=== PATIENT | female | born 1960 | race Two or more races ===

== ENCOUNTER 2017-07-29 09:30 | Inpatient (IN) | payer OTHER ==
--- NOTE | 2017-07-28 08:38 | HP ---
Admitting History and Physical - Primary Care Physician PCP: David Delarosa - Admission Chief Complaint: Left breast cancer History of Present Illness: 57 year old postmenapausal female of [place] descent with strong family history of breast cancer who had a palpable mass in her left breast upper outer quadrant 06/2017. Mammogram and US showed highly suspicious mass with pleomorphic calcifications left upper puter aspect. US showed the mass to be 3.5 cm. US core bx 06/2017 showed infiltrating ductal carcinoma. Breast MRI showed left breast cancer 5x3 xcm and second enhancing focus and enlarged node probably benign, left breast negative. History Source: Patient Limitations to Obtaining History: No Limitations - Past Surgical History Past Surgical History: Yes: (2) Additional Past Surgical History: benign stereotactic core bx 2003 - Smoking History Smoking history: Never smoked Have you smoked in the past 12 months: No - Alcohol/Substance Use Hx Alcohol Use: Yes (socially) Home Medications - Allergies Allergies/Adverse Reactions: Allergies Allergy/AdvReac Type Severity Reaction Status Date / Time No Known Allergies Allergy Verified 07/28/17 08:39 Family Disease History - Family Disease History Family Disease History: CA: Mother (breast ca 52) Physical Examination Constitutional: Yes: Well Nourished, No Distress Breast(s): Yes: Other (mildly ptotic breasts C cup 3.5-5 cm thickening no left breast upper outer quadrant, right breast negative no adenopathy) Problem List - Problems (1) Breast cancer, left breast Code(s): C50.912 - MALIGNANT NEOPLASM OF UNSPECIFIED SITE OF LEFT FEMALE BREAST Qualifiers: Breast location: upper outer quadrant of breast Patient sex: female Assessment/Plan Left total mastectomy sentenel node biopsy ,lymphoscintogram , possible axillary node dissection reconstruction
[2017-07-29] MEDS ORDERED: ISOSULFAN BLUE 10 MG/ML VIAL SQ ONE (10:22)
[2017-07-29] MEDS ORDERED: ROCURONIUM BROMIDE 50 MG/5 ML VIAL ONE (10:35)
[2017-07-29] MEDS ORDERED: PROPOFOL 20 ML ONE ×8 (10:35→14:46)
[2017-07-29] MEDS ORDERED: MIDAZOLAM HCL 2 MG/2 ML SINGLE DOSE VIAL ONE ×2 (10:36→11:26)
[2017-07-29] MEDS ORDERED: DEXAMETHASONE SOD PHOSPHATE 4 MG/1 ML VIAL ONE (10:37)
[2017-07-29] MEDS ORDERED: ONDANSETRON 4 MG/2 ML VIAL ONE ×2 (10:37→13:56)
[2017-07-29 11:01] VITALS: BMI 26.8
[2017-07-29] MEDS ORDERED: HALOPERIDOL LACTATE 5 MG/ML ONE (11:26)
[2017-07-29] MEDS ORDERED: DEXAMETHASONE SOD PHOSPHATE/PF 10 MG/ML SDV ONE (11:26)
[2017-07-29] MEDS ORDERED: SCOPOLAMINE HYDROBROMIDE 1 PATCH PATCH.TD72 ONE (11:26)
[2017-07-29] MEDS ORDERED: BUPIVACAINE HCL/PF (5 MG/ML) 30 ML VIAL IJ ONE (11:26)
[2017-07-29] MEDS ORDERED: ROPIVACAINE HCL 0.5% 30ML VIAL ONE (11:27)
[2017-07-29] MEDS ORDERED: SUCCINYLCHOLINE CHLORIDE 200 MG/10 ML VIAL ONE (12:08)
[2017-07-29] MEDS ORDERED: GLYCOPYRROLATE 0.2 MG/1 ML VIAL ONE (13:25)
[2017-07-29] MEDS ORDERED: NEOSTIGMINE METHYLSULFATE 0.5 MG/ML - 10 ML MDV ONE (13:25)
[2017-07-29] MEDS ORDERED: ZOLPIDEM TARTRATE 5 MG TABLET PO PRN (14:06)
[2017-07-29] MEDS ORDERED: ONDANSETRON 4 MG/2 ML VIAL IVPB PRN (14:06)
[2017-07-29] MEDS ORDERED: CEFAZOLIN 1 GM/D5W 50 ML IVPB SCH (15:00)
[2017-07-29] MEDS ORDERED: ONDANSETRON 4 MG/2 ML VIAL IVPUSH PRN (15:19)
[2017-07-29] MEDS ORDERED: LACTATED RINGERS SOLUTION 1,000 ML IV SCH (15:30)
[2017-07-29] MEDS: DEXTROSE 5%-0.45% SALINE 1,000 ML IV SCH (16:11)
[2017-07-29] MEDS ORDERED: oxyCODONE HCL 5 MG TABLET PO ONE (16:15)
[2017-07-29] MEDS ORDERED: oxyCODONE HCL 5 MG TABLET ONE (16:16)
[2017-07-29] MEDS: oxyCODONE HCL 5 MG TABLET PO PRN ×3 (17:46→23:25)
[2017-07-29] MEDS: CEFAZOLIN 1 GM/D5W 50 ML IVPB SCH ×2 (17:46→23:25)
--- NOTE | 2017-07-29 21:08 | OP ---
DATE OF OPERATION: 07/29/2017 PREOPERATIVE DIAGNOSIS: Left breast cancer, upper outer quadrant. POSTOPERATIVE DIAGNOSIS: Left breast cancer, upper outer quadrant. PROCEDURE: Left breast total mastectomy with left axillary sentinel lymph node biopsy with AirXpander reconstruction by Dr. Romano. ANESTHESIA: General anesthesia. PRIMARY SURGEON: Tracee Delarosa MD SOCIAL SERVICES COORDINATOR: STAN[place] Primary surgeon for the AirXpander reconstruction on the left side is Dr. Tracee Romano. There were no complications. Briefly, the patient is a 56-year-old, G4, P2, postmenopausal female, of descent. The patient felt a mass and pulling in the upper outer aspect of the left breast in June 2017 and underwent a mammography and ultrasound, showing a mass in the upper outer quadrant of the left breast measuring about 3.5 cm with significant surrounding calcifications. Ultrasound-guided core biopsy performed on July 01, 2017, showed a high-grade infiltrating ductal cancer at the 2 o'clock region, 7 cm from the nipple. This was ER/KS positive and HER-2/mauricio negative. The patient underwent an MRI, showing a 5 x 3 area of enhancement to the left breast with a separate area measuring 9 mm in the lower outer quadrant. There was no suspicious adenopathy. Given her breast size, it was felt that a mastectomy was needed. She was seen by the plastic surgeon preoperatively and floorworker lasting reconstruction was recommended. The patient was brought in for the surgery on July 29, 2017. She first underwent a lymphoscintigraphy at [facility] and was brought to the [facility] area. In the holding area, site verification was made and informed consent was obtained. She was marked preoperatively by the plastic surgeon. She was brought in to the operating room and laid on the OR table in a supine position. She did undergo a prepectoral block on the left side. Venodynes were placed on the lower extremities prior to induction. She received 1 g of Ancef prior to incision. Both breasts were sterilely prepped and draped in the usual fashion, with the left arm prepped in the field. Then 3 mL of Lymphazurin blue were injected intradermally around the periareolar region of the left breast, and massage was instituted. The procedure was started with the left axillary sentinel lymph node biopsy, and an incision was made just below the hair-bearing area of the left axilla and dissection was undertaken and blue lymphatics were easily seen coursing to 2 blue hot lymph nodes in the level 1 region of the left axilla. The 1st sentinel lymph node had a 10-second gamma count of 17,382, and the 2nd sentinel node had a 10-second gamma count of 2486, and both were blue and hot. This was sent for frozen section, came back negative. A separate slightly palpable node in the level 1 region of the left axilla was also excised and sent to Pathology for permanent section and labeled non-sentinel lymph node. Background counts after removal of these 3 nodes was 252. Hemostasis was achieved. At this point, a total mastectomy was performed. An elliptical incision was made around the nipple-areolar complex, removing the entire nipple-areolar complex. Skin flaps were raised superiorly to the level of the clavicle, medially to the level of the sternum, laterally to the level of the latissimus, and inferiorly below the level of the inframammary fold. The breast was taken down off the pectoralis major muscle using electrocautery from medial to lateral and completely removed intact. It was weighed to allow for appropriate cosmetic result, and oriented with a long lateral and short superior suture. Specimen radiograph showed removal of the clip in question. Hemostasis was achieved. A separate anterior margin was taken underneath the skin flap in the upper outer aspect of the left breast and sent separately in permanent section as anterior margin with a suture marking the biopsy cavity side. The wound was copiously irrigated with warm sterile saline. At this point, Dr. Romano became the primary surgeon, and he performed an floorworker lasting reconstruction in subpectoral location using an AirXpander. This will be dictated separate by Plastic Surgery. Two drains were placed around the floorworker lasting and both through separate stab incisions on the lateral skin flap. All wounds will be closed by Plastic Surgery. We did use a SPY skin perfusion device during the case and she had excellent skin perfusion of the flaps. The patient will be recovered after she is extubated, and then be admitted postoperatively for pain management and wound management. Her drains will be placed on LEONARDO self-bulb suction. All sponge and needle counts were correct at the end of the case. Estimated blood loss was about 60 mL and she was hemodynamically stable throughout. TRACEE DELAROSA M.D. CHON/[id number]
[2017-07-30] MEDS: oxyCODONE HCL 5 MG TABLET PO PRN ×5 (02:16→20:52)
[2017-07-30] MEDS: CEFAZOLIN 1 GM/D5W 50 ML IVPB SCH ×3 (06:45→17:34)
[2017-07-30] MEDS: ACETAMINOPHEN 325 MG TABLET (FP) PO PRN ×4 (07:26→21:28)
[2017-07-30] MEDS: HEPARIN NA (PORCINE) 5,000 UNITS/ML 1ML VIAL SQ SCH ×2 (07:26→20:37)
[2017-07-30 08:11] LABS: MCHC 32.6 g/dl (32.0-36.0); MEAN CELL VOLUME 85.7 fl (80-96); MEAN PLT VOLUME 8.2 fl (7.5-11.1); PLATELET COUNT 272 K/MM3 (134-434); RDW 12.3 % (11.6-15.6); WHITE BLOOD COUNT 11.9 K/mm3 (4.0-10.8)
--- NOTE | 2017-07-30 09:04 | PN ---
Progress Note, Physician Chief Complaint: S/P left mastectomy with reconstruction and snbx POD #1 History of Present Illness: Patient seen this am and is comfortable without any complaints. She has good pain control as well. - Current Medication List Current Medications: Active Medications Acetaminophen (Tylenol -) 650 mg PO Q4H PRN PRN Reason: FEVER Last Admin: 07/30/17 07:26 Dose: 650 mg Heparin Sodium (Porcine) (Heparin -) 5,000 unit SQ BID@0800,2000 [facility] Last Admin: 07/30/17 07:26 Dose: 5,000 unit Dextrose/Sodium Chloride (D5-1/2ns -) 1,000 mls @ 100 mls/hr IV ASDIR [facility] Last Admin: 07/29/17 16:11 Dose: Not Given Cefazolin Sodium (Ancef 1 Gm Premixed Ivpb -) 50 mls @ 100 mls/hr IVPB Q6H [facility] Last Admin: 07/30/17 06:45 Dose: 100 mls/hr Ondansetron HCl (Zofran Injection) 4 mg IVPB Q6H PRN PRN Reason: NAUSEA AND/OR VOMITING Oxycodone HCl (Roxicodone -) 5 mg PO Q3H PRN PRN Reason: PAIN LEVEL 1-5 Oxycodone HCl (Roxicodone -) 10 mg PO Q3H PRN PRN Reason: PAIN LEVEL 6-10 Last Admin: 07/30/17 02:16 Dose: 10 mg Zolpidem Tartrate (Ambien -) 5 mg PO HS PRN PRN Reason: Insomnia - Objective Vital Signs: Vital Signs Temperature 98.3 F 07/30/17 06:00 Pulse Rate 59 L 07/30/17 06:00 Respiratory Rate 18 07/30/17 08:44 Blood Pressure 86/54 07/30/17 06:00 O2 Sat by Pulse Oximetry (%) 99 07/30/17 08:44 Constitutional: Yes: Well Nourished, Calm Breast(s): Yes: Other (Breast flaps with good color. Steristrips intact without discharge or erythema. LEONARDO with serosanginous discharge.) Labs: CBC, BMP 07/30/17 07:00 Assessment/Plan S/P left mastectomy with reconstruction POD#1 Plan: OOB today with assistance IS 10 xs weekly Continue axbx and pain meds Plan for discharge in am. Teach LEONARDO monitoring.
--- NOTE | 2017-07-30 09:08 | OP ---
DATE OF OPERATION: 07/29/2017 SURGEON: Tracee Romano MD PREOPERATIVE DIAGNOSIS: Left chest wall deformity status post left mastectomy for breast cancer. POSTOPERATIVE DIAGNOSIS: Left chest wall deformity status post left mastectomy for breast cancer. OPERATIVE PROCEDURES: 1. Immediate left breast reconstruction utilizing insertion of tissue restaurant crew member. 2. Insertion and reconstruction of left breast with dermal matrix. 3. Intraoperative angiogram for diagnosis x2. OPERATIVE INDICATION: Patient is a woman who was brought to the operating room by Dr. Tracee Delarosa for a left mastectomy for a large breast cancer. The patient will undergo chemotherapy and probable radiation therapy, and decision was made to place a tissue restaurant crew member for immediate breast reconstruction. The risks and benefits of surgical versus nonsurgical alternatives as well as the material complications were described on multiple occasions preoperatively to the patient, including today again in the holding area. An Aeroform tissue restaurant crew member was chosen for her reconstruction. She knew that preoperatively and agreed to the planned procedure. OPERATIVE PROCEDURE IN DETAIL: Patient was taken to the operating room by Dr. Tracee Delarosa, and after being placed supine on the operating room table with both arms extended and padded, Venodyne boots were placed. The entire chest wall and axillae on both chest lockhart were prepped with ChloraPrep solution over their entire extent, and after timeout and antibiotic intravenously, Dr. Delarosa performed a left mastectomy with sentinel lymph node. This was carried out, and after the mastectomy was completed, I began my portion of the operation. Dr. Dealrosa will dictate his portion under the separate cover. Upon completion of the mastectomy, the chest wall wounds were copiously irrigated. The muscle itself was seen to be intact and reconstruction was performed. At this point, SPY intraoperative angiogram was performed. The SPY intraoperative angiogram was then carried out by injecting 4 mL of isocyanide green dye into the vascular system, and a SPY intraoperative angiogram was seen on the machine. Good blood flow was seen to all areas of the skin flaps except for the margin around the wound. This was then sharply debrided using the facelift scissors. Once this was accomplished, the subpectoral dissection was carried out, elevating a pocket superiorly from the second rib, medially to the sternal fibers, down to the inframammary fold, elevating the origin of the pectoralis major muscle from the rib margin. Hemostasis was again meticulously obtained, and then a sheet of AlloDerm, large contour perforated AlloDerm, was brought into the field sterilely. The left breast weight was 930 g of tissue, which was sent for pathologic diagnosis. At this point the AlloDerm was sutured to the pectoralis major muscle above using 3-0 Vicryl suture in a running fashion along the muscle and down along the lateral mammary fold. A second suture was begun on the medial side and run to the medial portion of the breast, and then the Aeroform dosage-controlled tissue restaurant crew member was placed into the pocket. At this point the continuation of the sutures was carried out over the breast itself and down to the inframammary fold, completely covering the tissue restaurant crew member, afterwards being tacked with 3-0 chromic sutures in multiple places. Complete coverage was achieved with the pectoralis major muscle and dermal matrix, and then the skin and subcutaneous tissue was advanced and closed upon itself. Two 15 Michael drains were brought out through separate stab wounds laterally. The skin was closed using 3-0 Vicryl sutures on the deep tissue, 3-0 PDS sutures on the deep dermis, and a running subcuticular 3-0 V-Loc suture on the skin. The axillary wound was also closed using interrupted and running sutures in a similar fashion. Dermabond, Steri-Strips, and a compressive dressing with the usual biopatch over the drains. The patient was awakened, extubated, and transferred to the recovery room in a Surgi-Bra with a fluff dressing. She tolerated the procedure well. She went to recovery room in satisfactory condition. TRACEE ROMANO M.D. JENNY/[id number]
[2017-07-30] MEDS: DEXTROSE 5%-0.45% SALINE 1,000 ML IV SCH (15:47)
[2017-07-31] MEDS: CEFAZOLIN 1 GM/D5W 50 ML IVPB SCH ×4 (00:18→18:27)
[2017-07-31] MEDS: HEPARIN NA (PORCINE) 5,000 UNITS/ML 1ML VIAL SQ SCH ×2 (08:21→19:47)
[2017-07-31] MEDS: oxyCODONE HCL 5 MG TABLET PO PRN ×3 (08:21→19:46)
--- NOTE | 2017-07-31 10:47 | PN ---
Progress Note, Physician Chief Complaint: incisional pain History of Present Illness: POD #2 s/p left mastectomy with reconstruction - Current Medication List Current Medications: Active Medications Acetaminophen (Tylenol -) 650 mg PO Q4H PRN PRN Reason: FEVER Last Admin: 07/30/17 21:28 Dose: 650 mg Heparin Sodium (Porcine) (Heparin -) 5,000 unit SQ BID@0800,2000 [facility] Last Admin: 07/31/17 08:21 Dose: 5,000 unit Cefazolin Sodium (Ancef 1 Gm Premixed Ivpb -) 50 mls @ 100 mls/hr IVPB Q6H [facility] Last Admin: 07/31/17 05:44 Dose: 100 mls/hr Ondansetron HCl (Zofran Injection) 4 mg IVPB Q6H PRN PRN Reason: NAUSEA AND/OR VOMITING Oxycodone HCl (Roxicodone -) 5 mg PO Q3H PRN PRN Reason: PAIN LEVEL 1-5 Last Admin: 07/30/17 20:52 Dose: 5 mg Oxycodone HCl (Roxicodone -) 10 mg PO Q3H PRN PRN Reason: PAIN LEVEL 6-10 Last Admin: 07/31/17 08:21 Dose: 10 mg Zolpidem Tartrate (Ambien -) 5 mg PO HS PRN PRN Reason: Insomnia - Objective Vital Signs: Vital Signs Temperature 98.2 F 07/31/17 05:00 Pulse Rate 60 07/31/17 05:00 Respiratory Rate 19 07/31/17 05:00 Blood Pressure 109/65 07/31/17 05:00 O2 Sat by Pulse Oximetry (%) 100 07/31/17 06:21 Constitutional: Yes: No Distress Wound/Incision: Yes: Clean/Dry (Incision clean, intact. Skin flaps warm and viable. LEONARDO drains functioning, serosanguineous effluent.) Labs: CBC, BMP 07/30/17 07:00 Assessment/Plan POD #2 s/p left mastectomy Pain control not adequate Encourage OOB abd ambulation Plan discharge home tomorrow
[2017-07-31] MEDS: ACETAMINOPHEN 325 MG TABLET (FP) PO PRN (19:46)
[2017-08-01] MEDS: CEFAZOLIN 1 GM/D5W 50 ML IVPB SCH ×3 (00:33→12:23)
[2017-08-01] MEDS: ACETAMINOPHEN 325 MG TABLET (FP) PO PRN (03:23)
[2017-08-01] MEDS: oxyCODONE HCL 5 MG TABLET PO PRN ×2 (04:24→12:22)
[2017-08-01 06:18] VITALS: TEMP 98.1
--- NOTE | 2017-08-01 09:05 | PN ---
Progress Note, Physician Chief Complaint: Patient feels better this morning, pain well controlled History of Present Illness: POD #3 s/p left mastectomy with reconstruction - Current Medication List Current Medications: Active Medications Acetaminophen (Tylenol -) 650 mg PO Q4H PRN PRN Reason: FEVER Last Admin: 08/01/17 03:23 Dose: 650 mg Heparin Sodium (Porcine) (Heparin -) 5,000 unit SQ BID@0800,2000 [facility] Last Admin: 07/31/17 19:47 Dose: 5,000 unit Cefazolin Sodium (Ancef 1 Gm Premixed Ivpb -) 50 mls @ 100 mls/hr IVPB Q6H [facility] Last Admin: 08/01/17 06:10 Dose: 100 mls/hr Ondansetron HCl (Zofran Injection) 4 mg IVPB Q6H PRN PRN Reason: NAUSEA AND/OR VOMITING Oxycodone HCl (Roxicodone -) 5 mg PO Q3H PRN PRN Reason: PAIN LEVEL 1-5 Last Admin: 08/01/17 04:24 Dose: 5 mg Oxycodone HCl (Roxicodone -) 10 mg PO Q3H PRN PRN Reason: PAIN LEVEL 6-10 Last Admin: 07/31/17 15:27 Dose: 10 mg Zolpidem Tartrate (Ambien -) 5 mg PO HS PRN PRN Reason: Insomnia - Objective Vital Signs: Vital Signs Temperature 98.1 F 08/01/17 06:00 Pulse Rate 72 08/01/17 06:00 Respiratory Rate 18 08/01/17 06:00 Blood Pressure 100/61 08/01/17 06:00 O2 Sat by Pulse Oximetry (%) 97 07/31/17 22:15 Constitutional: Yes: Well Nourished, No Distress Wound/Incision: Yes: Clean/Dry (Skin flaps warm and viable; JPs functioning, serosanguineous effluent) Labs: CBC, BMP 07/30/17 07:00 Assessment/Plan POD #3 s/p left mastectomy Pain control adequate Discharge home Follow up with Dr. Delarosa
[2017-08-01] MEDS: HEPARIN NA (PORCINE) 5,000 UNITS/ML 1ML VIAL SQ SCH (09:36)
[2017-08-01 09:58] VITALS: BP 105/67; PULSE 72
--- NOTE | 2017-08-04 09:57 | PATH ---
Surgical Pathology Report Patient Name: PUMA WILD Med. Rec. #: [id number] /Age/Gender: 1960 (Age: 56) / F Account: [id number] Location: [facility] MED-SURG Taken: 07/29/2017 Received: 07/29/2017 Reported: 08/04/2017 Physicians: David Delarosa M.D. Specimen(s) Received A: LEFT BREAST SENTINEL NODE #1 (FS) B: LEFT BREAST SENTINEL NODE #2 (FS) C: LEFT BREAST NON-SENTINEL NODE D: LEFT MASTECTOMY E: LEFT BREAST ANTERIOR MARGIN Clinical History Mastectomy: L Invasive, tumor/biopsy site at 2:00 Intraoperative Consult Diagnosis A. Left breast sentinel node #1, frozen section: One benign lymph node. B. Left breast sentinel node #2, frozen section: One benign lymph node. Dr. Tian Sage, July 29, 2017 Final Diagnosis A. LYMPH NODE, LEFT BREAST SENTINEL #1, EXCISION (FS): METASTATIC CARCINOMA INVOLVING ONE OF ONE LYMPH NODE (1/1); THE LARGEST FOCUS OF METASTATIC CARCINOMA MEASURES 2 MM IN GREATEST DIMENSION (MICROMETASTASIS). (SEE NOTE). FOCAL EXTRANODAL EXTENSION IS PRESENT. Note: The foci of micrometastasis are not identified on the original frozen section slides and are present on deeper permanent sections. B. LYMPH NODE, LEFT BREAST SENTINEL #2, EXCISION (FS): ONE LYMPH NODE, NEGATIVE FOR METASTATIC CARCINOMA (0/1). C. LYMPH NODE, LEFT BREAST NON-SENTINEL, EXCISION: ONE LYMPH NODE, NEGATIVE FOR METASTATIC CARCINOMA (0/1). D. BREAST, LEFT, TOTAL MASTECTOMY: INVASIVE DUCTAL CARCINOMA, MODERATELY DIFFERENTIATED (TUBULE SCORE: 3/3, NUCLEAR GRADE: 2/3, MITOTIC SCORE: 2/3; TOTAL JADYN SCORE: 7/9). INVASIVE CARCINOMA MEASURES 3.2 CM IN GREATEST DIMENSION (GROSS MEASUREMENT). EXTENSIVE DUCTAL CARCINOMA IN SITU (DCIS), SOLID TYPE, HIGH NUCLEAR GRADE WITH EXTENSIVE NECROSIS AND ASSOCIATED CALCIFICATIONS, PRESENT ADMIXED WITH INVASIVE CARCINOMA AND AWAY FROM IT. SURGICAL MARGINS ARE UNINVOLVED BY CARCINOMA; INVASIVE AND IN SITU CARCINOMA ARE AT 2 MM FROM THE CLOSEST (ANTERIOR) MARGIN. SEE SPECIMEN E FOR FINAL ANTERIOR MARGIN. NIPPLE AND SKIN ARE UNINVOLVED BY CARCINOMA. LYMPHOVASCULAR INVASION IS PRESENT. PATHOLOGIC STAGE (pTNM): pT2 pN1mi. SEE ALSO INVASIVE CARCINOMA CASE SUMMARY BELOW. E. BREAST, LEFT, ANTERIOR MARGIN, EXCISION: BENIGN FIBROADIPOSE TISSUE. Comments Breast Invasive Carcinoma: Surgical Pathology Cancer Case Summary Based on AJCC/UICC TNM, 7th edition Procedure _X_ Total mastectomy (including nipple and skin) Lymph Node Sampling _X_ [place] lymph node(s) Specimen Laterality _X_ Left Tumor Size: Size of Largest Invasive Carcinoma: 3.2 cm Tumor Focality _X_ Single focus of invasive carcinoma Macroscopic and Microscopic Extent of Tumor Skin _X_ Invasive carcinoma does not invade into the dermis or epidermis Nipple _X_ DCIS does not involve the nipple epidermis Ductal Carcinoma In Situ (DCIS) _X_ DCIS is present _X_ as a major component (>25% of tumor, extensive intraductal component) Histologic Type of Invasive Carcinoma : _X_ Invasive carcinoma of no special type (ductal, not otherwise specified) Histologic Grade: (Jadyn Histologic Score) Tubular Differentiation _X_ Score 3 Nuclear Pleomorphism _X_ Score 2 Mitotic Rate _X_ Score 2 Overall Grade _X_ Grade 2: scores of 6 or 7 (moderately differentiated) Margins _X_ Margins uninvolved by invasive carcinoma Distance from closest margin: 2 mm from anterior margin in mastectomy specimen D. Final anterior margin E is negative for carcinoma. _X_ Margins uninvolved by DCIS (required only if residual DCIS is present in specimen) Distance from closest margin: 2 mm from anterior margin in mastectomy specimen D. Final anterior margin E is negative Lymph-Vascular Invasion _X_ Present Lymph Nodes Total number of lymph nodes examined (sentinel and nonsentinel): 3 Number of sentinel lymph nodes examined: 2 Number of lymph nodes with macrometastases ( > 2 mm): 0 Number of lymph nodes with micrometastases (>0.2 mm to 2 mm and/or >200cells):1 Number of lymph nodes with isolated tumor cells (=0.2 mm and =200 cells): 0 Size of largest metastatic deposit (if present): 2 mm Extranodal Extension _X_ Present (focal) Pathologic Staging (pTNM) Primary Tumor (Invasive Carcinoma): pT2 Regional Lymph Nodes (pN): pN1mi(sn) Biomarker Studies Results of ER and MI studies performed on this specimen (block D3) at [facility] are as follows: ER (clone [id number] mouse monoclonal antibody by [employer]): ~50 % nuclear staining with moderate intensity (Positive). MI (clone16 mouse monoclonal antibody by [employer]): ~10 % nuclear staining with moderate intensity (Positive). Results of Her2 & Ki67 studies will be reported separately in an addendum. Positive and negative controls (internal if applicable) show appropriate results. Formalin fixation and cold ischemic times are within current ASCO/CAP recommendations for ER, MI and Her2 testing. Electronically Signed Sharon Delgadillo M.D. Addendum Reported: 08/05/2017 Addendum Diagnosis Results of Her2 (IHC) & Ki-67 studies performed on block D3 at [place], [place] ([id number]) are as follows: Her2 IHC (EP3 from [employer], formerly known as [id number], using [employer] Polymer Refine detection kit): 0 (Negative). Ki-67: ~30% (Intermediate proliferative index). Positive and negative controls (internal if applicable) show appropriate results. Sharon Delgadillo M.D. Gross Description A. Received fresh for frozen section labeled "left breast sentinel node #1" is an approximately 1.4 x 1.2 x 0.8 cm ovoid lymph node. Cut surface reveals blue discoloration. The lymph node is bisected and frozen in its entirety, and the frozen remainder is submitted in cassette FSA. B. Received fresh for frozen section labeled "left breast sentinel node #2" is an approximately 0.6 x 0.4 x 0.4 cm ovoid lymph node. Cut surface reveals a rai and brown interior. The lymph node is bisected and frozen in its entirety, and the frozen remainder is submitted in cassette FSB. C. Received in formalin labeled "left breast non-sentinel node," is a 0.6 x 0.4 x 0.4 cm rai-brown, irregular lymph node with attached fat. The specimen is bisected and entirely submitted in one cassette. D. Received in formalin, labeled "left mastectomy," is a 962 gram, 20.5 x 16.5 x 6.5 cm. left mastectomy specimen with a short suture marking the superior aspect and a long suture marking the lateral aspect of the specimen, per the surgeon. The anterior surface displays a 10.5 x 5.8 cm rai, elliptical portion of skin with a 1.3 cm diameter nipple. The deep margin is inked black and the anterior soft tissue margin is inked blue. The specimen is serially sectioned from medial to lateral. Sectioning reveals a 3.2 x 3.2 x 2.1 cm rai, firm mass in the upper outer quadrant (UOQ). The mass is at 0.9 cm from the anterior soft tissue margin and 1.3 cm from the deep margin. The mass is surrounded by abundant dense, white, firm fibrous tissue. The remaining breast parenchyma displays multiple foci of dense white fibrous tissue. Mixer Whipped Topping sections are submitted in 17 cassettes as follows: 1-serially sectioned nipple; 2-subareolar shave; 3-4-one full-face bisected section of mass; 5-mass to deep margin; 6-7-mass to anterior soft tissue margin; 8-9-UOQ tissue surrounding mass; 10-11-lower outer quadrant; 12-13-upper inner quadrant; 14-15-lower inner quadrant; 16-skin and anterior soft tissue margin; 17-deep margin. Time to formalin fixation: 29 minutes Total formalin fixation time: Approximately 28 hours. E. Received in formalin labeled "left breast anterior margin," is a 4.8 x 3.3 x 1.5 cm irregular portion of fibroadipose tissue with a suture marking the biopsy cavity side, per the surgeon. The new margin is inked black and the specimen is serially sectioned. The specimen is entirely and sequentially submitted in 10 cassettes. [facility]/07/29/2017 [facility]/07/29/2017
== END 2017-08-01 13:15 | disposition home or self-care (01) | DRG 581 ==
LOC: FM/S 10:03
PROVIDERS: ADMIT Surgery Surgical Oncology; ATTEND Surgery Surgical Oncology
PROC: 4A1GXSH Monitoring of Skin and Breast Vascular Perfusion using Indocyanine Green Dye, External Approach (ICD-10-PCS; 2017-07-29)
PROC: 0HTU0ZZ Resection of Left Breast, Open Approach (ICD-10-PCS; principal; 2017-07-29 12:28)
PROC: 07B60ZX Excision of Left Axillary Lymphatic, Open Approach, Diagnostic (ICD-10-PCS; 2017-07-29 12:28)
PROC: 0HHU0NZ Insertion of Tissue Expander into Left Breast, Open Approach (ICD-10-PCS; 2017-07-29 12:28)
PROC: 0HUU0JZ Supplement Left Breast with Synthetic Substitute, Open Approach (ICD-10-PCS; 2017-07-29 12:28)
DX: C50.412 Malignant neoplasm of upper-outer quadrant of left female breast (principal); Z17.0 Estrogen receptor positive status [ER+]; M95.4 Acquired deformity of chest and rib; Z80.3 Family history of malignant neoplasm of breast
CPT/HCPCS: 36415; 78195-TC; 85027; 88307-TC; 88331-TC; 94760; A9541; J1644

== ENCOUNTER 2017-12-03 11:05 | Day surgery (SDC) | payer OTHER ==
[2017-12-01 16:14] VITALS: BMI 29.8
[2017-12-03] MEDS ORDERED: MIDAZOLAM HCL 2 MG/2 ML SINGLE DOSE VIAL ONE (12:00)
[2017-12-03] MEDS ORDERED: GENTAMICIN SO4 80 MG/2 ML VIAL ONE (12:32)
[2017-12-03] MEDS ORDERED: LIDOCAINE 1%/EPI 1:100000 (20 ML MULTI DOSE VIAL) ONE (12:32)
[2017-12-03] MEDS ORDERED: ceFAZolin SODIUM 1 GM VIAL ONE ×2 (12:32→13:17)
[2017-12-03] MEDS ORDERED: ONDANSETRON 4 MG/2 ML VIAL IVPUSH PRN (12:44)
[2017-12-03] MEDS ORDERED: traMADol HCL 50 MG TABLET PO ONE ×2 (12:44→15:40)
[2017-12-03] MEDS ORDERED: LACTATED RINGERS SOLUTION 1,000 ML IV SCH (12:45)
[2017-12-03] MEDS ORDERED: LIDOCAINE HCL 1%, 10 MG/ML (20ML VIAL) ONE ×2 (12:48)
[2017-12-03] MEDS ORDERED: LIDOCAINE HCL 2% 100 MG/5 ML DISP.SYRIN ONE (13:09)
[2017-12-03] MEDS ORDERED: PROPOFOL 20 ML ONE (13:11)
[2017-12-03] MEDS ORDERED: DEXAMETHASONE SOD PHOSPHATE 4 MG/1 ML VIAL ONE ×2 (13:20→14:03)
[2017-12-03] MEDS ORDERED: ONDANSETRON 4 MG/2 ML VIAL ONE ×3 (13:20→14:30)
[2017-12-03] MEDS ORDERED: LIDOCAINE 1%/EPI 1:100000 (50 ML MULTI DOSE VIAL) INF ONE (13:25)
[2017-12-03] MEDS ORDERED: BUPIVACAINE HCL/EPINEPHRINE/PF 30 ML VIAL IJ ONE (13:38)
[2017-12-03] MEDS ORDERED: BUPIVACAINE HCL/PF 0.5% (5MG/ML) 10 ML VIAL ONE ×2 (13:38→13:39)
[2017-12-03] MEDS ORDERED: BUPIVACAINE HCL 0.5% 250 MG/50 ML VIAL IJ ONE (13:58)
[2017-12-03 15:29] VITALS: PULSE 69
[2017-12-03 15:57] VITALS: TEMP 98
[2017-12-03 16:49] VITALS: BP 121/65
--- NOTE | 2017-12-06 20:23 | OP ---
DATE OF OPERATION: 12/03/2017 SURGEON: Tracee Romano MD INTERACTIVE MULTIMEDIA DESIGNER SURGEON: Rubin Amaro PA-C PREOPERATIVE DIAGNOSES: 1. 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 2. Asymmetry of reconstructed chest wall. 3. History of breast cancer. POSTOPERATIVE DIAGNOSES: 1. 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 2. Asymmetry of reconstructed chest wall. 3. History of breast cancer. OPERATIVE PROCEDURE: 1. Capsulectomy, removal of left breast implant. 2. Correction of chest wall asymmetry with placement of permanent silicone gel implant for reconstructive purposes. OPERATIVE INDICATION: Patient is a 57-year-old female who underwent left breast mastectomy for breast cancer. The patient is brought back after previously having an implant device placed during the initial surgery which was an AeroForm device. The risks and benefits of surgical versus nonsurgical alternatives as well as material complications including autologous reconstruction have been discussed with the patient and preoperatively. They agree to this planned procedure. OPERATIVE PROCEDURE IN DETAIL: Patient was taken to the operating room after being marked in the standing position for outline of the reconstructive purposes with the patient and in attendance. Mastectomy scar was marked and inframammary fold as well. Patient was taken to the operating room, and after induction of general anesthesia in supine position, both arms were extended and padded. Venodyne boots were placed, and attention was turned to the reconstructed breast. A left breast incision for mastectomy was injected with 1% local lidocaine anesthesia with 1:100,000 epinephrine. An incision was planned approximately 12 cm in length across the chest wall in the mastectomy scar. After allowing topical anesthesia hemostasis after previous injection, an incision was made under optical magnification of 2 power, down through the skin to the subcutaneous tissue, through the subcutaneous tissue, down to the underlying capsule. The capsule was then opened using electrocautery along the course of the incision, and the device implant was removed. This device was sent for pathologic diagnosis, and areas of the capsule which appeared to be thickened were excised and also sent for pathologic diagnosis to rule out breast cancer. Capsulotomy was then performed in the superior, medial, and inferior portions of the breast accepting of implant. Hemostasis was meticulously obtained throughout the procedure in order to assure drainage. At this point, an implant was chosen of a Natrelle 410 highly-cohesive anatomically-shaped silicone-filled breast implant style 410, 740 mL. This adequately matched the opposite side. The wounds were copiously irrigated with triple-antibiotic solution throughout, and the implant was placed sterilely. At this point, advancement flaps were created superiorly and inferiorly in order to close the wounds. The deep wounds were closed using 2-0 PDS suture in deep fashion with buried knots, and a deeper layer using 3-0 Biosyn sutures in interrupted fashion was placed to close the deep subcutaneous tissue. A third layer also was closed using 4-0 Biosyn in a subcuticular fashion in order to approximate the 3-layered closure wound. Good shape and contour was seen in the sitting position. All wounds were dressed sterilely with Dermabond and Steri-Strips. A light compressive bra was placed over the breast. She was awakened, extubated, and transferred to the recovery room in satisfactory condition. She tolerated the procedure well. TRACEE ROMANO M.D. [id number]
--- NOTE | 2017-12-08 15:17 | PATH ---
Surgical Pathology Report Patient Name: PUMA WILD [facility]. Rec. #: [id number] /Age/Gender: 1960 (Age: 57) / F Account: [id number] Location: [facility] Taken: 12/03/2017 Received: 12/03/2017 Reported: 12/08/2017 Physicians: Harsha Romano Specimen(s) Received A: LEFT BREAST CAPSULE B: LEFT BREAST EXPANDING IMPLANT Clinical History History of breast cancer Final Diagnosis A.CAPSULE, LEFT BREAST, CAPSULECTOMY: FIBROUS CAPSULE. B. LIVESTOCK CARETAKER IMPLANT, LEFT BREAST, REMOVAL: TISSUE LIVESTOCK CARETAKER, DESCRIBED (GROSS EXAMINATION ONLY). Electronically Signed Sharon Delgadillo M.D. Gross Description A. Received in formalin labeled "left breast capsule," are 2 rai, unoriented portions of firm fibrous tissue measuring 2.2 x 1.1 x 0.7 cm and 3.3 x 1.0 x 0.6 cm. No masses are identified. Internal Control Consultant sections are submitted in one cassette. B. Received fresh labeled "left breast tip cementer implant," is a 13.0 x 12.0 x 6.0 cm rai foreign body, consistent with a breast tissue tip cementer. No soft tissue is present. No sections are submitted, gross only. 12/06/2017 [facility]12/06/2017
== END 2017-12-03 16:45 | disposition home or self-care (01) ==
LOC: FASU 11:05
PROVIDERS: ATTEND Plastic Surgery
PROC: 0HRU0JZ Replacement of Left Breast with Synthetic Substitute, Open Approach (ICD-10-PCS; 2017-12-03)
PROC: 0HPU0JZ Removal of Synthetic Substitute from Left Breast, Open Approach (ICD-10-PCS; principal; 2017-12-03 13:26)
DX: M95.4 Acquired deformity of chest and rib (principal); Z90.12 Acquired absence of left breast and nipple; N65.1 Disproportion of reconstructed breast; N65.0 Deformity of reconstructed breast; Z85.3 Personal history of malignant neoplasm of breast
CPT/HCPCS: 88300-TC